=== PATIENT | male | born 1970 | race African-American/Black ===

== ENCOUNTER 2023-09-23 18:57 | Emergency (ER) | payer BC ==
[2023-09-23 19:07] VITALS: RESP 18; BMI 36.3
[2023-09-23] MEDS: ACETAMINOPHEN 1000 MG/100 ML BAG IVPB ONE (20:15)
[2023-09-23 20:24] LABS: BASO % 0.6 % (0-2.0); EOS % 2.5 % (0-4.5); HEMATOCRIT 41.6 % (35.4-49); LYMPH % 25.8 % (8-40); MCH 28.8 pg (25.7-33.7); MCHC 33.6 g/dl (32.0-35.9); MEAN CELL VOLUME 85.6 fl (80-96); MEAN PLT VOLUME 8.4 fl (7.5-11.1); MONO % 9.2 % (3.8-10.2); NEUT % 61.9 % (42.8-82.8); PLATELET COUNT 209 10^3/uL (134-434); RBC 4.86 M/mm3 (4.00-5.60); RDW 14.9 % (11.9-15.9)
[2023-09-23 20:34] LABS: PROTHROMBIN TIME (PATIENT) 11.5 SEC (9.7-13.0)
[2023-09-23 20:37] LABS: ACTIVATED PTT 31.7 SECONDS (25.2-36.5)
[2023-09-23 20:41] LABS: POTASSIUM 3.9 mmol/L (3.5-5.1)
[2023-09-23 20:43] LABS: CALCIUM 8.9 mg/dL (8.5-10.1)
[2023-09-23 20:44] LABS: ALBUMIN 3.7 g/dl (3.4-5.0); BLOOD UREA NITROGEN 14.3 mg/dL (7-18); MAGNESIUM 2.1 mg/dL (1.8-2.4)
[2023-09-23 20:47] LABS: CREATININE 1.2 mg/dL (0.55-1.3)
[2023-09-23 20:48] LABS: BILIRUBIN,TOTAL 0.4 mg/dL (0.2-1)
[2023-09-23 20:49] LABS: TOT PROT 7.2 g/dl (6.4-8.2)
[2023-09-24 00:42] VITALS: BP 118/73; PULSE 74; TEMP 97.7
== END 2023-09-24 01:17 | disposition home or self-care (01) ==
LOC: JER 18:57
PROC: 3E033NZ Introduction of Analgesics, Hypnotics, Sedatives into Peripheral Vein, Percutaneous Approach (ICD-10-PCS; principal; 2023-09-23)
DX: R22.41 Localized swelling, mass and lump, right lower limb (principal); M79.604 Pain in right leg
CPT/HCPCS: 36415; 71045-TC-FY; 71275-TC; 80053; 83735; 84484; 85025; 85379; 85610; 85730; 86850; 86900; 86901; 93005; 93010; 93971-TC; 99285-25; J0131; Q9967